=== PATIENT | female | born 1945 | race Caucasian/White ===

== ENCOUNTER 2021-11-29 09:20 | Outpatient (CLI) | payer MEDICARE, OTHER | END 2021-11-29 23:59 | disposition home or self-care (01) | LOC: LAB 09:20 | PROVIDERS: ATTEND Surgery | DX: Z01.812 Encounter for preprocedural laboratory examination (principal); Z20.822 Contact with and (suspected) exposure to COVID-19 ==

== ENCOUNTER 2021-12-01 05:56 | Day surgery (SDC) | payer MEDICARE, OTHER ==
[2021-12-01 06:33] LABS: *BILIRUBIN,URIN 2+ (NEGATIVE); *BLOOD, URINE NEGATIVE (NEGATIVE); *CLARITY,URINE CLOUDY (CLEAR); *COLOR,URINE YELLOW (YELLOW); *KETONES,URINE 1+ (NEGATIVE); *UROBILINOGEN,URINE 0.2 E.U./dl (NORMAL); LEUKOCYTE ESTERASE ,URINE NEGATIVE (NEGATIVE); NITRITE, URINE NEGATIVE (NEGATIVE); UGLUCOSE NEGATIVE (NEGATIVE)
[2021-12-01 06:54] LABS: BACTERIA,URINE FEW /HPF (NONE SEEN); RBC,URINE 0-3 /HPF (0-3); SQUAMOUS EPITHELIAL CELL,UR MANY /HPF (NONE SEEN); WBC,URINE 0-3 /HPF (0-3)
[2021-12-01] MEDS ORDERED: BUPIVACAINE 0.25% 30 ML VIAL ONE (07:47)
[2021-12-01] MEDS ORDERED: LIDOCAINE 1%-EPI 1:100,000 20 ML VIAL ONE (07:47)
[2021-12-01] MEDS ORDERED: PROPOFOL 200 MG/20 ML BOTTLE ONE ×2 (09:10)
[2021-12-01] MEDS ORDERED: LIDOCAINE-MPF 2% 5 ML VIAL ONE (09:10)
[2021-12-01] MEDS ORDERED: CEFAZOLIN 1 G VIAL ONE ×2 (09:10)
[2021-12-01] MEDS ORDERED: ACETAMINOPHEN 325 MG TABLET ONE (09:30)
[2021-12-01] MEDS ORDERED: IBUPROFEN 600 MG TABLET PO ONE (10:00)
[2021-12-01] MEDS ORDERED: GABAPENTIN 100 MG CAPSULE PO ONE (10:00)
[2021-12-01] MEDS ORDERED: ACETAMINOPHEN 325 MG TABLET PO ONE (10:00)
== END 2021-12-01 10:15 | disposition home or self-care (01) ==
LOC: DS 05:56
PROVIDERS: ATTEND Surgery
DX: R19.4 Change in bowel habit (principal); K62.5 Hemorrhage of anus and rectum; K64.8 Other hemorrhoids; K44.9 Diaphragmatic hernia without obstruction or gangrene; K57.30 Diverticulosis of large intestine without perforation or abscess without bleeding; K29.80 Duodenitis without bleeding; K29.50 Unspecified chronic gastritis without bleeding; K63.89 Other specified diseases of intestine; K31.89 Other diseases of stomach and duodenum; I11.0 Hypertensive heart disease with heart failure; I50.9 Heart failure, unspecified; E78.5 Hyperlipidemia, unspecified; Z79.899 Other long term (current) drug therapy; Z98.890 Other specified postprocedural states
CPT/HCPCS: 46260; 43239; 45378; 71045; 81001; J3490 ×3; J0690 ×2; J7040; A4663